=== PATIENT | male | born 1935 | race Caucasian/White ===

== ENCOUNTER 2020-06-26 17:06 | Inpatient (IN) ==
[2020-06-26] MEDS ORDERED: Furosemide 40 MG TABLET PO PRN (20:23)
[2020-06-26] MEDS: Aspirin 325 MG TABLET PO SCH (21:14)
[2020-06-26] MEDS: amLODIPine 5 MG TABLET PO SCH (21:14)
[2020-06-26] MEDS: lisinopriL 20 MG TABLET PO SCH (21:14)
[2020-06-26] MEDS: *HR* OxyCODONE Immed Rel 5 MG TABLET PO PRN (21:14)
[2020-06-26] MEDS: *HR* Metformin 500 MG TABLET PO SCH (21:14)
[2020-06-27] MEDS: *HR* Enoxaparin 40 MG/0.4 ML SYRINGE SQ SCH (05:27)
[2020-06-27] MEDS: *HR* OxyCODONE Immed Rel 5 MG TABLET PO PRN ×2 (05:28→19:57)
[2020-06-27 05:38] LABS: Basophils # 0.1 K/mcL (0.0-0.2); Basophils % 0.6 %; Eosinophils # 0.2 K/mcL (0.0-0.6); Eosinophils % 2.9 %; Hematocrit 33.2 % (37.5-50.1); Hemoglobin 11.1 g/dL (12.9-16.9); Immature Granulocytes % 0.5 % (0-4); Lymphocytes # 2.6 K/mcL (0.6-4.6); Lymphocytes % 30.8 %; Mean Corpuscular HGB Conc 33.4 g/dL (31.6-35.5); Mean Corpuscular Volume 86.7 fL (83.0-100.0); Mean Platelet Volume 10.9 fL (9.4-12.4); Monocytes # 0.8 K/mcL (0.0-1.3); Neutrophils # 4.7 K/mcL (1.6-8.9); Platelet Count 164 K/mcL (140-400); Red Blood Count 3.83 M/mcL (4.19-5.50); Red Cell Distribution Width 14.5 % (11.5-14.5); Segmented Neutrophils % 56.2 %; White Blood Count 8.4 K/mcL (4.3-11.1)
[2020-06-27 05:49] LABS: BUN/Creatinine Ratio 14 (6-26); Blood Urea Nitrogen 14 mg/dL (8-23); Calcium 8.2 mg/dL (8.6-10.3); Carbon Dioxide 26 mEq/L (23-29); Chloride 101 mEq/L (98-107); Glucose 100 mg/dL (70-105); Osmolality,Calculated 279 (280-300); Potassium 4.3 mEq/L (3.5-5.1); Sodium 134 mEq/L (136-145); eGFR For African Americans > 60 (> 60); eGFR For Non-African Americans > 60 (> 60)
[2020-06-27] MEDS: Aspirin 325 MG TABLET PO SCH ×2 (07:40→19:57)
[2020-06-27] MEDS: lisinopriL 20 MG TABLET PO SCH (19:56)
[2020-06-27] MEDS: amLODIPine 5 MG TABLET PO SCH (19:57)
[2020-06-27] MEDS: *HR* Metformin 500 MG TABLET PO SCH (19:57)
[2020-06-28] MEDS: *HR* OxyCODONE Immed Rel 5 MG TABLET PO PRN ×2 (05:22→09:18)
[2020-06-28] MEDS: *HR* Enoxaparin 40 MG/0.4 ML SYRINGE SQ SCH (05:22)
[2020-06-28] MEDS: Aspirin 325 MG TABLET PO SCH ×2 (09:18→20:28)
[2020-06-28] MEDS ORDERED: MOM Conc 10 ML UD.LIQ PO PRN (20:11)
[2020-06-28] MEDS: lisinopriL 20 MG TABLET PO SCH (20:29)
[2020-06-28] MEDS: amLODIPine 5 MG TABLET PO SCH (20:29)
[2020-06-28] MEDS: *HR* Metformin 500 MG TABLET PO SCH (20:29)
[2020-06-29] MEDS: *HR* Enoxaparin 40 MG/0.4 ML SYRINGE SQ SCH (04:38)
[2020-06-29] MEDS: Aspirin 325 MG TABLET PO SCH ×2 (08:12→20:37)
[2020-06-29] MEDS: *HR* OxyCODONE Immed Rel 5 MG TABLET PO PRN ×2 (08:12→20:37)
[2020-06-29] MEDS: lisinopriL 20 MG TABLET PO SCH (20:37)
[2020-06-29] MEDS: amLODIPine 5 MG TABLET PO SCH (20:37)
[2020-06-29] MEDS: *HR* Metformin 500 MG TABLET PO SCH (20:37)
[2020-06-30] MEDS: *HR* OxyCODONE Immed Rel 5 MG TABLET PO PRN ×3 (05:07→20:08)
[2020-06-30] MEDS: *HR* Enoxaparin 40 MG/0.4 ML SYRINGE SQ SCH (05:07)
[2020-06-30] MEDS: Aspirin 81 MG TAB.CHEW PO SCH (07:21)
[2020-06-30] MEDS: lisinopriL 20 MG TABLET PO SCH (20:08)
[2020-06-30] MEDS: amLODIPine 5 MG TABLET PO SCH (20:08)
[2020-06-30] MEDS: *HR* Metformin 500 MG TABLET PO SCH (20:08)
[2020-07-01] MEDS: *HR* Enoxaparin 40 MG/0.4 ML SYRINGE SQ SCH (05:05)
[2020-07-01] MEDS: *HR* OxyCODONE Immed Rel 5 MG TABLET PO PRN ×3 (05:11→20:43)
[2020-07-01] MEDS: Aspirin 81 MG TAB.CHEW PO SCH (07:55)
[2020-07-01] MEDS: *HR* Metformin 500 MG TABLET PO SCH (20:44)
[2020-07-01] MEDS: lisinopriL 20 MG TABLET PO SCH (20:44)
[2020-07-01] MEDS: amLODIPine 5 MG TABLET PO SCH (20:44)
[2020-07-02] MEDS: *HR* Enoxaparin 40 MG/0.4 ML SYRINGE SQ SCH (05:54)
[2020-07-02 06:41] LABS: Hematocrit 32.7 % (37.5-50.1); Hemoglobin 10.7 g/dL (12.9-16.9); Mean Corpuscular HGB Conc 32.7 g/dL (31.6-35.5); Mean Corpuscular Hemoglobin 28.5 pg (28.0-33.3); Mean Corpuscular Volume 87.2 fL (83.0-100.0); Mean Platelet Volume 9.7 fL (9.4-12.4); Platelet Count 310 K/mcL (140-400); Red Blood Count 3.75 M/mcL (4.19-5.50); Red Cell Distribution Width 14.5 % (11.5-14.5); White Blood Count 8.1 K/mcL (4.3-11.1)
[2020-07-02 07:03] LABS: BUN/Creatinine Ratio 20 (6-26); Blood Urea Nitrogen 19 mg/dL (8-23); Calcium 8.1 mg/dL (8.6-10.3); Carbon Dioxide 27 mEq/L (23-29); Chloride 101 mEq/L (98-107); Glucose 97 mg/dL (70-105); Magnesium 2.2 mg/dL (1.6-2.6); Osmolality,Calculated 282 (280-300); Potassium 4.4 mEq/L (3.5-5.1); Sodium 135 mEq/L (136-145); eGFR For African Americans > 60 (> 60); eGFR For Non-African Americans > 60 (> 60)
[2020-07-02] MEDS: Aspirin 81 MG TAB.CHEW PO SCH (08:25)
[2020-07-02] MEDS: *HR* OxyCODONE Immed Rel 5 MG TABLET PO PRN ×3 (08:25→21:15)
[2020-07-02] MEDS: lisinopriL 20 MG TABLET PO SCH (21:13)
[2020-07-02] MEDS: amLODIPine 5 MG TABLET PO SCH (21:13)
[2020-07-02] MEDS: *HR* Metformin 500 MG TABLET PO SCH (21:13)
[2020-07-03] MEDS: *HR* Enoxaparin 40 MG/0.4 ML SYRINGE SQ SCH (05:20)
[2020-07-03] MEDS: *HR* OxyCODONE Immed Rel 5 MG TABLET PO PRN ×2 (05:21→07:48)
[2020-07-03 07:26] VITALS: BP 116/70
[2020-07-03] MEDS: Aspirin 81 MG TAB.CHEW PO SCH (07:48)
== END 2020-07-03 11:15 | disposition home health service (06) | DRG 561 ==
LOC: INPGRE 18:37
PROVIDERS: ADMIT Family Medicine; ATTEND Family Medicine

== ENCOUNTER 2020-12-03 22:26 | Inpatient (IN) ==
[2020-12-04] MEDS ORDERED: Nitroglycerin 0.4 MG TAB.SUBL SL PRN (18:53)
[2020-12-04] MEDS ORDERED: *HR* HYDROcodone/Acet 5/325 mg TABLET PO PRN (18:53)
[2020-12-04] MEDS ORDERED: lisinopriL 20 MG TABLET PO SCH (21:00)
[2020-12-05 05:56] LABS: Basophils % 0.1 %; Hematocrit 29.7 % (37.5-50.1); Hemoglobin 9.8 g/dL (12.9-16.9); Immature Granulocytes % 0.6 % (0-4); Lymphocytes # 1.3 K/mcL (0.6-4.6); Lymphocytes % 11.6 %; Mean Corpuscular Hemoglobin 27.5 pg (28.0-33.3); Mean Corpuscular Volume 83.2 fL (83.0-100.0); Mean Platelet Volume 9.9 fL (9.4-12.4); Monocytes # 0.6 K/mcL (0.0-1.3); Monocytes % 4.9 %; Platelet Count 161 K/mcL (140-400); Red Blood Count 3.57 M/mcL (4.19-5.50); Red Cell Distribution Width 16.4 % (11.5-14.5); Segmented Neutrophils % 82.8 %; White Blood Count 11.2 K/mcL (4.3-11.1)
[2020-12-05 06:00] LABS: Neutrophils # 9.3 K/mcL (1.6-8.9)
[2020-12-05 07:00] LABS: Alanine Aminotransferase 23 Units/L (7-52); Albumin 3.3 g/dL (3.5-5.7); Albumin/Globulin Ratio 1.1 (1.1-2.2); Alkaline Phosphatase 48 Units/L (34-104); Aspartate Amino Transferase 33 Units/L (13-39); BUN/Creatinine Ratio 35 (6-26); Bilirubin,Total 0.8 mg/dL (0.3-1.0); Blood Urea Nitrogen 31 mg/dL (8-23); Calcium 8.5 mg/dL (8.6-10.3); Carbon Dioxide 27 mEq/L (23-29); Chloride 102 mEq/L (98-107); Globulin 2.9 g/dL (2.4-3.5); Glucose 113 mg/dL (70-105); Osmolality,Calculated 293 (280-300); Potassium 4.1 mEq/L (3.5-5.1); Sodium 138 mEq/L (136-145); Total Protein 6.2 g/dL (6.4-8.9); eGFR For African Americans > 60 (> 60); eGFR For Non-African Americans > 60 (> 60)
[2020-12-05 07:01] LABS: Magnesium 1.8 mg/dL (1.6-2.6)
[2020-12-05] MEDS: Aspirin Enteric Coated 81 MG Tablet PO SCH (09:12)
[2020-12-05] MEDS: dexAMETHasone 4 MG TABLET PO SCH (09:12)
[2020-12-05] MEDS: *HR* Metformin 500 MG TABLET PO SCH ×2 (09:12→21:20)
[2020-12-05] MEDS: Isosorbide MONOnitrate (24 HR) 30 MG TAB.ER.24H PO SCH (09:13)
[2020-12-05] MEDS: lisinopriL 20 MG TABLET PO SCH (21:18)
[2020-12-06] MEDS: *HR* Metformin 500 MG TABLET PO SCH ×2 (09:29→19:59)
[2020-12-06] MEDS: Aspirin Enteric Coated 81 MG Tablet PO SCH (09:30)
[2020-12-06] MEDS: Isosorbide MONOnitrate (24 HR) 30 MG TAB.ER.24H PO SCH (09:30)
[2020-12-06] MEDS: dexAMETHasone 4 MG TABLET PO SCH (09:30)
[2020-12-06] MEDS: lisinopriL 20 MG TABLET PO SCH (20:00)
[2020-12-07] MEDS: *HR* Metformin 500 MG TABLET PO SCH ×2 (08:51→20:44)
[2020-12-07] MEDS: Aspirin Enteric Coated 81 MG Tablet PO SCH (08:51)
[2020-12-07] MEDS: dexAMETHasone 4 MG TABLET PO SCH (08:52)
[2020-12-07] MEDS: Isosorbide MONOnitrate (24 HR) 30 MG TAB.ER.24H PO SCH (08:52)
[2020-12-07] MEDS: Furosemide 40 MG TABLET PO SCH (17:22)
[2020-12-07] MEDS: lisinopriL 20 MG TABLET PO SCH (20:44)
[2020-12-08] MEDS: Aspirin Enteric Coated 81 MG Tablet PO SCH (09:17)
[2020-12-08] MEDS: dexAMETHasone 4 MG TABLET PO SCH (09:17)
[2020-12-08] MEDS: Furosemide 40 MG TABLET PO SCH (09:17)
[2020-12-08] MEDS: Isosorbide MONOnitrate (24 HR) 30 MG TAB.ER.24H PO SCH (09:18)
[2020-12-08] MEDS: *HR* Metformin 500 MG TABLET PO SCH ×2 (09:20→19:59)
[2020-12-08] MEDS: lisinopriL 20 MG TABLET PO SCH (19:59)
[2020-12-09 07:18] LABS: Alanine Aminotransferase 72 Units/L (7-52); Albumin 3.4 g/dL (3.5-5.7); Alkaline Phosphatase 59 Units/L (34-104); Aspartate Amino Transferase 72 Units/L (13-39); BUN/Creatinine Ratio 49 (6-26); Bilirubin,Total 1.4 mg/dL (0.3-1.0); Blood Urea Nitrogen 42 mg/dL (8-23); Calcium 8.5 mg/dL (8.6-10.3); Carbon Dioxide 23 mEq/L (23-29); Chloride 101 mEq/L (98-107); Globulin 3.4 g/dL (2.4-3.5); Glucose 75 mg/dL (70-105); Osmolality,Calculated 291 (280-300); Potassium 4.5 mEq/L (3.5-5.1); Sodium 136 mEq/L (136-145); Total Protein 6.8 g/dL (6.4-8.9); eGFR For African Americans > 60 (> 60); eGFR For Non-African Americans > 60 (> 60)
[2020-12-09] MEDS: Isosorbide MONOnitrate (24 HR) 30 MG TAB.ER.24H PO SCH (08:13)
[2020-12-09] MEDS: dexAMETHasone 4 MG TABLET PO SCH (08:13)
[2020-12-09] MEDS: Furosemide 40 MG TABLET PO SCH (08:14)
[2020-12-09] MEDS: *HR* Metformin 500 MG TABLET PO SCH ×2 (08:14→20:16)
[2020-12-09] MEDS: Aspirin Enteric Coated 81 MG Tablet PO SCH (08:14)
[2020-12-09 08:36] LABS: Hematocrit 34.6 % (37.5-50.1); Mean Corpuscular HGB Conc 31.8 g/dL (31.6-35.5); Mean Corpuscular Hemoglobin 27.1 pg (28.0-33.3); Mean Corpuscular Volume 85.2 fL (83.0-100.0); Mean Platelet Volume 10.3 fL (9.4-12.4); Platelet Count 252 K/mcL (140-400); Red Blood Count 4.06 M/mcL (4.19-5.50); White Blood Count 10.5 K/mcL (4.3-11.1)
[2020-12-09 14:11] LABS: Ferritin 388 ng/mL (20-250)
[2020-12-09] MEDS: lisinopriL 20 MG TABLET PO SCH (20:16)
[2020-12-10] MEDS: Aspirin Enteric Coated 81 MG Tablet PO SCH (08:29)
[2020-12-10] MEDS: *HR* Metformin 500 MG TABLET PO SCH ×2 (08:29→21:12)
[2020-12-10] MEDS: Isosorbide MONOnitrate (24 HR) 30 MG TAB.ER.24H PO SCH (08:30)
[2020-12-10] MEDS: Furosemide 40 MG TABLET PO SCH (08:30)
[2020-12-10] MEDS: lisinopriL 20 MG TABLET PO SCH (21:12)
[2020-12-11] MEDS: Isosorbide MONOnitrate (24 HR) 30 MG TAB.ER.24H PO SCH (08:45)
[2020-12-11] MEDS: Aspirin Enteric Coated 81 MG Tablet PO SCH (08:45)
[2020-12-11] MEDS: Furosemide 40 MG TABLET PO SCH (08:45)
[2020-12-11] MEDS: *HR* Metformin 500 MG TABLET PO SCH ×2 (08:45→21:34)
[2020-12-11 11:10] LABS: Basophils # 0.1 K/mcL (0.0-0.2); Basophils % 0.7 %; Eosinophils # 0.1 K/mcL (0.0-0.6); Eosinophils % 0.6 %; Hematocrit 41.1 % (37.5-50.1); Hemoglobin 13.1 g/dL (12.9-16.9); Immature Granulocytes % 8.2 % (0-4); Lymphocytes # 3.1 K/mcL (0.6-4.6); Lymphocytes % 21.7 %; Mean Corpuscular HGB Conc 31.9 g/dL (31.6-35.5); Mean Corpuscular Hemoglobin 26.6 pg (28.0-33.3); Mean Corpuscular Volume 83.5 fL (83.0-100.0); Mean Platelet Volume 10.4 fL (9.4-12.4); Monocytes % 6.7 %; Neutrophils # 8.8 K/mcL (1.6-8.9); Nucleated Red Blood Cells 0.1 /100 WBC (0); Platelet Count 348 K/mcL (140-400); Red Blood Count 4.92 M/mcL (4.19-5.50); Red Cell Distribution Width 16.4 % (11.5-14.5); Segmented Neutrophils % 62.1 %; White Blood Count 14.2 K/mcL (4.3-11.1)
[2020-12-11 11:25] LABS: BUN/Creatinine Ratio 36 (6-26); Blood Urea Nitrogen 36 mg/dL (8-23); Calcium 8.9 mg/dL (8.6-10.3); Carbon Dioxide 26 mEq/L (23-29); Chloride 97 mEq/L (98-107); Glucose 95 mg/dL (70-105); Osmolality,Calculated 288 (280-300); Potassium 4.4 mEq/L (3.5-5.1); Sodium 135 mEq/L (136-145); eGFR For African Americans > 60 (> 60); eGFR For Non-African Americans > 60 (> 60)
[2020-12-11] MEDS: levoFLOXacin 750 MG TABLET PO SCH (13:44)
[2020-12-11] MEDS: lisinopriL 20 MG TABLET PO SCH (21:36)
[2020-12-11] MEDS: Apixaban 5 MG TABLET PO SCH (21:36)
[2020-12-12 06:08] LABS: Basophils # 0.1 K/mcL (0.0-0.2); Basophils % 0.4 %; Eosinophils # 0.1 K/mcL (0.0-0.6); Eosinophils % 0.9 %; Hematocrit 36.4 % (37.5-50.1); Hemoglobin 11.6 g/dL (12.9-16.9); Immature Granulocytes % 8.3 % (0-4); Lymphocytes % 17.8 %; Mean Corpuscular HGB Conc 31.9 g/dL (31.6-35.5); Mean Corpuscular Volume 84.8 fL (83.0-100.0); Mean Platelet Volume 9.9 fL (9.4-12.4); Monocytes # 0.9 K/mcL (0.0-1.3); Monocytes % 6.6 %; Neutrophils # 8.7 K/mcL (1.6-8.9); Nucleated Red Blood Cells 0.2 /100 WBC (0); Platelet Count 298 K/mcL (140-400); Red Blood Count 4.29 M/mcL (4.19-5.50); Red Cell Distribution Width 16.4 % (11.5-14.5); White Blood Count 13.2 K/mcL (4.3-11.1)
[2020-12-12 06:14] LABS: Lymphocytes # 2.4 K/mcL (0.6-4.6)
[2020-12-12 07:36] LABS: Platelet Estimate Normal (Normal)
[2020-12-12] MEDS: levoFLOXacin 750 MG TABLET PO SCH (09:27)
[2020-12-12] MEDS: Isosorbide MONOnitrate (24 HR) 30 MG TAB.ER.24H PO SCH (09:27)
[2020-12-12] MEDS: Apixaban 5 MG TABLET PO SCH ×2 (09:27→22:11)
[2020-12-12] MEDS: Aspirin Enteric Coated 81 MG Tablet PO SCH (09:27)
[2020-12-12] MEDS: Furosemide 40 MG TABLET PO SCH (09:27)
[2020-12-12] MEDS: *HR* Metformin 500 MG TABLET PO SCH ×2 (09:27→22:12)
[2020-12-12] MEDS: lisinopriL 20 MG TABLET PO SCH (19:12)
[2020-12-13 06:17] LABS: Basophils # 0.1 K/mcL (0.0-0.2); Basophils % 0.6 %; Eosinophils # 0.1 K/mcL (0.0-0.6); Eosinophils % 0.9 %; Hematocrit 37.5 % (37.5-50.1); Hemoglobin 11.9 g/dL (12.9-16.9); Immature Granulocytes % 7.7 % (0-4); Lymphocytes # 2.4 K/mcL (0.6-4.6); Lymphocytes % 19.6 %; Mean Corpuscular HGB Conc 31.7 g/dL (31.6-35.5); Mean Corpuscular Hemoglobin 26.8 pg (28.0-33.3); Mean Corpuscular Volume 84.5 fL (83.0-100.0); Mean Platelet Volume 10.1 fL (9.4-12.4); Monocytes # 0.7 K/mcL (0.0-1.3); Monocytes % 6.1 %; Neutrophils # 7.9 K/mcL (1.6-8.9); Platelet Count 291 K/mcL (140-400); Red Blood Count 4.44 M/mcL (4.19-5.50); Red Cell Distribution Width 16.4 % (11.5-14.5); Segmented Neutrophils % 65.1 %; White Blood Count 12.1 K/mcL (4.3-11.1)
[2020-12-13 06:44] LABS: BUN/Creatinine Ratio 29 (6-26); Blood Urea Nitrogen 32 mg/dL (8-23); Calcium 8.2 mg/dL (8.6-10.3); Carbon Dioxide 31 mEq/L (23-29); Chloride 98 mEq/L (98-107); Glucose 81 mg/dL (70-105); Osmolality,Calculated 286 (280-300); Sodium 135 mEq/L (136-145); eGFR For African Americans > 60 (> 60); eGFR For Non-African Americans > 60 (> 60)
[2020-12-13] MEDS: levoFLOXacin 750 MG TABLET PO SCH (08:44)
[2020-12-13] MEDS: Furosemide 40 MG TABLET PO SCH (08:44)
[2020-12-13] MEDS: Apixaban 5 MG TABLET PO SCH ×2 (08:45→22:20)
[2020-12-13] MEDS: Aspirin Enteric Coated 81 MG Tablet PO SCH (08:45)
[2020-12-13] MEDS: *HR* Metformin 500 MG TABLET PO SCH ×2 (08:46→20:20)
[2020-12-13] MEDS: Isosorbide MONOnitrate (24 HR) 30 MG TAB.ER.24H PO SCH (08:46)
[2020-12-14] MEDS: lisinopriL 20 MG TABLET PO SCH ×2 (01:25→20:18)
[2020-12-14] MEDS: *HR* Metformin 500 MG TABLET PO SCH ×2 (07:52→20:18)
[2020-12-14] MEDS: Isosorbide MONOnitrate (24 HR) 30 MG TAB.ER.24H PO SCH (07:52)
[2020-12-14] MEDS: Apixaban 5 MG TABLET PO SCH ×2 (07:52→20:19)
[2020-12-14] MEDS: Furosemide 40 MG TABLET PO SCH (07:52)
[2020-12-14] MEDS: levoFLOXacin 750 MG TABLET PO SCH (07:52)
[2020-12-14] MEDS: Aspirin Enteric Coated 81 MG Tablet PO SCH (07:53)
[2020-12-15] MEDS: Aspirin Enteric Coated 81 MG Tablet PO SCH (08:51)
[2020-12-15] MEDS: *HR* Metformin 500 MG TABLET PO SCH ×2 (08:51→20:10)
[2020-12-15] MEDS: Isosorbide MONOnitrate (24 HR) 30 MG TAB.ER.24H PO SCH (08:51)
[2020-12-15] MEDS: Furosemide 40 MG TABLET PO SCH (08:51)
[2020-12-15] MEDS: Apixaban 5 MG TABLET PO SCH ×2 (08:51→20:11)
[2020-12-15] MEDS: levoFLOXacin 750 MG TABLET PO SCH (08:52)
[2020-12-15] MEDS: lisinopriL 20 MG TABLET PO SCH (20:11)
[2020-12-16] MEDS: *HR* Metformin 500 MG TABLET PO SCH ×2 (09:05→21:52)
[2020-12-16] MEDS: Isosorbide MONOnitrate (24 HR) 30 MG TAB.ER.24H PO SCH (09:05)
[2020-12-16] MEDS: Apixaban 5 MG TABLET PO SCH ×2 (09:05→21:53)
[2020-12-16] MEDS: Furosemide 40 MG TABLET PO SCH (09:05)
[2020-12-16] MEDS: levoFLOXacin 750 MG TABLET PO SCH (09:06)
[2020-12-16] MEDS: Aspirin Enteric Coated 81 MG Tablet PO SCH (09:06)
[2020-12-16] MEDS: lisinopriL 20 MG TABLET PO SCH (21:53)
[2020-12-17 06:17] LABS: Basophils % 0.2 %; Eosinophils # 0.1 K/mcL (0.0-0.6); Eosinophils % 0.9 %; Hematocrit 36.5 % (37.5-50.1); Hemoglobin 11.8 g/dL (12.9-16.9); Immature Granulocytes % 1.1 % (0-4); Lymphocytes # 2.1 K/mcL (0.6-4.6); Mean Corpuscular HGB Conc 32.3 g/dL (31.6-35.5); Mean Corpuscular Hemoglobin 27.2 pg (28.0-33.3); Mean Corpuscular Volume 84.1 fL (83.0-100.0); Mean Platelet Volume 10.6 fL (9.4-12.4); Monocytes # 0.9 K/mcL (0.0-1.3); Neutrophils # 7.1 K/mcL (1.6-8.9); Platelet Count 248 K/mcL (140-400); Red Blood Count 4.34 M/mcL (4.19-5.50); Red Cell Distribution Width 16.4 % (11.5-14.5); Segmented Neutrophils % 68.8 %; White Blood Count 10.3 K/mcL (4.3-11.1)
[2020-12-17 06:36] LABS: Calcium 8.8 mg/dL (8.6-10.3); Potassium 4.4 mEq/L (3.5-5.1)
[2020-12-17 07:22] VITALS: BP 105/70; PULSE 91; RESP 15; TEMP 98; O2SAT 97
[2020-12-17] MEDS: Furosemide 40 MG TABLET PO SCH (08:39)
[2020-12-17] MEDS: Aspirin Enteric Coated 81 MG Tablet PO SCH (08:39)
[2020-12-17] MEDS: *HR* Metformin 500 MG TABLET PO SCH (08:39)
[2020-12-17] MEDS: levoFLOXacin 750 MG TABLET PO SCH (08:40)
[2020-12-17] MEDS: Isosorbide MONOnitrate (24 HR) 30 MG TAB.ER.24H PO SCH (08:40)
[2020-12-17] MEDS: Apixaban 5 MG TABLET PO SCH (08:40)
[2020-12-17] MEDS ORDERED: FLU Vac QV 21-22 (6Month+)/PF 0.5 ML SYRINGE IM ONE (09:10)
== END 2020-12-17 11:55 | disposition home health service (06) | DRG 177 ==
LOC: INPGRE 12-04 18:14
PROVIDERS: ADMIT Family Medicine; ATTEND Family Medicine